=== PATIENT | female | born 1965 | race Caucasian/White ===

== ENCOUNTER 2017-10-21 10:29 | Emergency (ER) | payer MEDICARE ==
[~2017-10-21] VITALS: Ht 165.1 cm; Wt 127.0 kg
[2017-10-21] MEDS ORDERED: HYDROmorphone 2 MG/ML, 1ML ONE (11:05)
[2017-10-21] MEDS ORDERED: HYDROmorphone 1 MG/ML, 1ML IM ONE (11:30)
[2017-10-21 11:37] LABS: BASOPHILS # (AUTO) 0.03 x10^3/uL (0-0.1); BASOPHILS % (AUTO) 0 % (0-1); EOSINOPHILS # (AUTO) 0.18 x10^3/uL (0-0.4); EOSINOPHILS % (AUTO) 2 % (1-7); LYMPHOCYTES # (AUTO) 2.34 x10^3/uL (1-3.4); LYMPHOCYTES % (AUTO) 30 % (22-44); MD NO; MEAN CORPUSCULAR HEMOGLOBIN 31.6 pg (27.0-34.8); MEAN CORPUSCULAR HGB CONC 33.1 g/dL (32.4-35.8); MEAN CORPUSCULAR VOLUME 95.4 fL (80-100); MEAN PLATELET VOLUME 8.2 fL (7.4-10.4); MONOCYTES # (AUTO) 0.69 x10^3/uL (0.2-0.8); MONOCYTES % (AUTO) 9 % (2-9); NEUTROPHILS # (AUTO) 4.52 x10^3/uL (1.8-6.8); NEUTROPHILS % (AUTO) 58 % (42-75); PLATELET COUNT 270 x10^3/uL (130-400); RED BLOOD COUNT 4.45 x10^6/uL (3.82-5.3); RED CELL DISTRIBUTION WIDTH 13.3 % (9.6-15.2)
[2017-10-21 11:38] LABS: ALBUMIN 3.5 g/dL (3.4-5.0); ANION GAP 6 mmol/L (5-15); CALCIUM 9.3 mg/dL (8.5-10.1); CHLORIDE 108 mmol/L (98-107); CREATININE 0.99 mg/dL (0.55-1.02)
[2017-10-21 12:27] VITALS: BP 132/74
== END 2017-10-21 12:29 | disposition home or self-care (01) ==
LOC: ED 12:22
DX: L03.312 Cellulitis of back [any part except buttock and flank] (principal); F17.200 Nicotine dependence, unspecified, uncomplicated
CPT/HCPCS: 36415; 80048; 82040; 85025; 96372; 99284; J1170

== ENCOUNTER 2018-03-30 23:46 | Emergency (ER) | payer MEDICARE ==
[~2018-03-30] VITALS: Ht 162.6 cm; Wt 131.0 kg
[2018-03-31] MEDS ORDERED: PROMETHAZINE 25 MG/ML, 1ML ONE (00:19)
[2018-03-31] MEDS ORDERED: HYDROmorphone 2 MG/ML, 1ML ONE (00:20)
[2018-03-31 00:29] LABS: MICROSCOPIC NOT IND
[2018-03-31] MEDS ORDERED: PROMETHAZINE 25 MG/ML, 1ML IM ONE (00:30)
[2018-03-31] MEDS ORDERED: HYDROmorphone 1 MG/ML, 1ML IM ONE (00:30)
[2018-03-31 00:32] LABS: CULTURE INDICATED? YES
[2018-03-31 00:37] LABS: BASOPHILS # (AUTO) 0.04 x10^3/uL (0-0.1); BASOPHILS % (AUTO) 0 % (0-1); EOSINOPHILS % (AUTO) 0 % (1-7); LYMPHOCYTES # (AUTO) 0.59 x10^3/uL (1-3.4); LYMPHOCYTES % (AUTO) 5 % (22-44); MD NO; MEAN CORPUSCULAR HEMOGLOBIN 32.7 pg (27.0-34.8); MEAN CORPUSCULAR HGB CONC 33.4 g/dL (32.4-35.8); MEAN CORPUSCULAR VOLUME 97.8 fL (80-100); MEAN PLATELET VOLUME 8.1 fL (7.4-10.4); MONOCYTES # (AUTO) 0.13 x10^3/uL (0.2-0.8); MONOCYTES % (AUTO) 1 % (2-9); NEUTROPHILS # (AUTO) 12.32 x10^3/uL (1.8-6.8); NEUTROPHILS % (AUTO) 94 % (42-75); PLATELET COUNT 278 x10^3/uL (130-400); RED BLOOD COUNT 4.45 x10^6/uL (3.82-5.3); RED CELL DISTRIBUTION WIDTH 13.3 % (9.6-15.2)
[2018-03-31 00:43] LABS: ALANINE AMINOTRANSFERASE 53 U/L (12-78); ALBUMIN 3.9 g/dL (3.4-5.0); ANION GAP 8 mmol/L (5-15); CALCIUM 8.9 mg/dL (8.5-10.1); CHLORIDE 106 mmol/L (98-107); CREATININE 0.94 mg/dL (0.55-1.02)
[2018-03-31 00:45] LABS: ALKALINE PHOSPHATASE 76 U/L (45-117); BILIRUBIN,TOTAL 0.4 mg/dL (0.2-1.0); TOTAL PROTEIN 7.7 g/dL (6.4-8.2)
[2018-03-31 01:08] VITALS: BP 151/74
[2018-03-31] MEDS ORDERED: METOCLOPRAMIDE 5 MG/ML, 2ML ONE (01:09)
[2018-03-31] MEDS ORDERED: METOCLOPRAMIDE 5 MG/ML, 2ML IM PRN (01:30)
== END 2018-03-31 02:21 | disposition home or self-care (01) ==
LOC: ED 03-31 00:18
DX: G43.A1 Cyclical vomiting, in migraine, intractable (principal); R10.32 Left lower quadrant pain; M54.5 Low back pain; Z90.49 Acquired absence of other specified parts of digestive tract; Z87.891 Personal history of nicotine dependence
CPT/HCPCS: 36415; 80053; 81003; 85025; 87086; 96372; 99283; J1170; J2550; J2765

== ENCOUNTER 2018-04-02 19:28 | Observation (INO) | payer MEDICARE ==
[~2018-04-02] VITALS: Ht 165.1 cm; Wt 134.5 kg
[2018-04-02 20:17] LABS: CHLORIDE 106 mmol/L (98-107)
[2018-04-02 20:18] LABS: ALBUMIN 3.8 g/dL (3.4-5.0); ANION GAP 9 mmol/L (5-15); CALCIUM 8.8 mg/dL (8.5-10.1); CREATININE 1.09 mg/dL (0.55-1.02)
[2018-04-02 20:40] LABS: MEAN CORPUSCULAR HEMOGLOBIN 33.7 pg (27.0-34.8); MEAN CORPUSCULAR HGB CONC 34.8 g/dL (32.4-35.8); MEAN CORPUSCULAR VOLUME 96.8 fL (80-100); MEAN PLATELET VOLUME 9.9 fL (7.4-10.4); PLATELET COUNT 369 x10^3/uL (130-400); RED BLOOD COUNT 4.36 x10^6/uL (3.82-5.3); RED CELL DISTRIBUTION WIDTH 13.9 % (9.6-15.2)
[2018-04-02 20:45] LABS: BASOPHILS # (AUTO) 0.06 x10^3/uL (0-0.1); BASOPHILS % (AUTO) 1 % (0-1); EOSINOPHILS # (AUTO) 0.33 x10^3/uL (0-0.4); EOSINOPHILS % (AUTO) 4 % (1-7); LYMPHOCYTES # (AUTO) 1.88 x10^3/uL (1-3.4); LYMPHOCYTES % (AUTO) 23 % (22-44); MD SCAN; MONOCYTES # (AUTO) 0.35 x10^3/uL (0.2-0.8); MONOCYTES % (AUTO) 4 % (2-9); NEUTROPHILS % (AUTO) 69 % (42-75)
[2018-04-02] MEDS ORDERED: DIAZEPAM 5 MG/ML, 2ML IM STA (20:54)
[2018-04-02] MEDS ORDERED: SODIUM CHLORIDE FLUSH 10ML SYR IVF ONE (21:00)
[2018-04-02] MEDS ORDERED: ONDANSETRON 2MG/ML, 2ML IVPush ONE (21:00)
[2018-04-02] MEDS ORDERED: ONDANSETRON 2MG/ML, 2ML ONE (21:25)
[2018-04-02] MEDS ORDERED: HYDROmorphone 2 MG/ML, 1ML ONE ×2 (21:26→22:03)
[2018-04-02] MEDS: HYDROmorphone 2 MG/ML, 1ML IVPush PRN ×2 (21:31→22:18)
[2018-04-02] MEDS ORDERED: METHYLNALTREXONE 12 MG/0.6 ML SQ ONE ×2 (22:30→22:39)
[2018-04-03] MEDS ORDERED: QUET200T PO (00:03)
[2018-04-03] MEDS ORDERED: SULF1TAB24 PO (00:03)
[2018-04-03] MEDS ORDERED: BACL20TA PO (00:03)
[2018-04-03] MEDS ORDERED: OXYC5CAP2 PO (00:03)
[2018-04-03] MEDS ORDERED: ONDA4TAB7 PO (00:03)
[2018-04-03] MEDS ORDERED: GABAPENTIN 300 MG CAPSULE PO PRN (00:30)
[2018-04-03] MEDS ORDERED: hydrALAzine 20 MG/ML, 1ML IVPush PRN (00:30)
[2018-04-03] MEDS ORDERED: ACETAMINOPHEN 325 MG TABLET PO PRN (00:30)
[2018-04-03 01:17] VITALS: BP 123/85
[2018-04-03] MEDS: HYDROmorphone 2 MG/ML, 1ML IM PRN ×4 (01:55→19:36)
[2018-04-03] MEDS: ENOXAPARIN 40 MG/0.4 ML SQ SCH (01:55)
[2018-04-03] MEDS: QUETIAPINE 200 MG TABLET PO SCH ×2 (01:55→21:08)
[2018-04-03] MEDS: HYDROcodone/APAP 5/325 TABLET PO PRN ×3 (03:40→16:25)
[2018-04-03] MEDS: LIDODERM 5% PATCH TD PRN (03:41)
[2018-04-03 06:55] VITALS: BP 105/61
[2018-04-03] MEDS: SULFAMETH./TRIMETHOPRIM DS 800MG/160MG TABLET PO SCH ×2 (09:38→21:08)
[2018-04-03] MEDS: BACLOFEN 10 MG TABLET PO SCH ×2 (09:38→21:08)
[2018-04-03] MEDS: SENNA/DOCUSATE TABLET PO SCH (09:38)
[2018-04-03] MEDS: ONDANSETRON ODT 4 MG PO PRN (12:25)
[2018-04-03 13:11] VITALS: BP 116/72
[2018-04-03] MEDS ORDERED: POLYETHYLENE GLYCOL 17 GM PACKET ONE (17:12)
[2018-04-03] MEDS: POLYETHYLENE GLYCOL 17 GM PACKET NG SCH (17:21)
[2018-04-03 19:57] VITALS: BP 107/63
[2018-04-03] MEDS: OXYcodone/APAP 5/325MG TABLET PO PRN (22:59)
[2018-04-04] MEDS: HYDROmorphone 2 MG/ML, 1ML IM PRN ×2 (01:15→05:37)
[2018-04-04 02:01] VITALS: BP 116/76
[2018-04-04] MEDS: ENOXAPARIN 40 MG/0.4 ML SQ SCH (03:00)
[2018-04-04 07:28] VITALS: BP 100/62
[2018-04-04] MEDS: POLYETHYLENE GLYCOL 17 GM PACKET NG SCH (07:51)
[2018-04-04] MEDS: SULFAMETH./TRIMETHOPRIM DS 800MG/160MG TABLET PO SCH ×2 (07:51→20:55)
[2018-04-04] MEDS: OXYcodone/APAP 5/325MG TABLET PO PRN ×4 (07:51→20:55)
[2018-04-04] MEDS: SENNA/DOCUSATE TABLET PO SCH (07:51)
[2018-04-04] MEDS: BACLOFEN 10 MG TABLET PO SCH ×2 (07:51→20:54)
[2018-04-04] MEDS: ONDANSETRON ODT 4 MG PO PRN (07:58)
[2018-04-04] MEDS ORDERED: HYDROmorphone 2 MG/ML, 1ML IM PRN (08:30)
[2018-04-04] MEDS: HEPARIN 5,000 UNITS/ML, 1ML SQ SCH ×3 (09:00→19:27)
[2018-04-04] MEDS: GABAPENTIN 300 MG CAPSULE PO SCH ×2 (09:00→19:26)
[2018-04-04] MEDS: ACETAMINOPHEN 325 MG TABLET PO SCH ×4 (10:10→22:48)
[2018-04-04] MEDS: FAMOTIDINE 20 MG TABLET PO SCH ×2 (12:09→20:54)
[2018-04-04 13:16] VITALS: BP 110/58
[2018-04-04 19:38] VITALS: BP 108/70
[2018-04-04] MEDS: QUETIAPINE 200 MG TABLET PO SCH ×2 (20:54→21:00)
[2018-04-05 01:42] VITALS: BP 143/109
[2018-04-05] MEDS: OXYcodone/APAP 5/325MG TABLET PO PRN ×3 (01:55→10:26)
[2018-04-05] MEDS: LIDODERM 5% PATCH TD PRN (04:33)
[2018-04-05 06:37] VITALS: BP 142/83
[2018-04-05] MEDS: POLYETHYLENE GLYCOL 17 GM PACKET NG SCH (08:45)
[2018-04-05] MEDS: SULFAMETH./TRIMETHOPRIM DS 800MG/160MG TABLET PO SCH (08:45)
[2018-04-05] MEDS: BACLOFEN 10 MG TABLET PO SCH (08:45)
[2018-04-05] MEDS: SENNA/DOCUSATE TABLET PO SCH (08:45)
[2018-04-05] MEDS: FAMOTIDINE 20 MG TABLET PO SCH (08:45)
[2018-04-05] MEDS: GABAPENTIN 300 MG CAPSULE PO SCH (08:46)
[2018-04-05] MEDS: HEPARIN 5,000 UNITS/ML, 1ML SQ SCH (08:47)
[2018-04-05] MEDS ORDERED: LACTOBACILLUS CHEW TABLET PO SCH (09:00)
[2018-04-05] MEDS: ACETAMINOPHEN 325 MG TABLET PO SCH (10:13)
[2018-04-05] MEDS ORDERED: OMEP-110 PO (10:16)
[2018-04-05] MEDS ORDERED: ACET325T14 PO (10:16)
[2018-04-05] MEDS ORDERED: ACID1TAB7 PO (10:16)
[2018-04-05] MEDS: ONDANSETRON ODT 4 MG PO PRN (10:27)
[2018-04-06] MEDS ORDERED: OMEPRAZOLE 20 MG CAPSULE.DR PO SCH (06:00)
== END 2018-04-05 12:00 | disposition home or self-care (01) ==
LOC: ED 20:27 → 3NE 04-03 00:04
PROVIDERS: ADMIT Family Medicine; ATTEND Family Medicine
DX: G89.4 Chronic pain syndrome (principal); M79.7 Fibromyalgia; E66.01 Morbid (severe) obesity due to excess calories; F11.20 Opioid dependence, uncomplicated; K21.9 Gastro-esophageal reflux disease without esophagitis; G47.30 Sleep apnea, unspecified; Z90.710 Acquired absence of both cervix and uterus
CPT/HCPCS: 36415; 74021; 80048; 82040; 85025; 96372; 96374; 96375; 96376; 99284; G0378; J1170; J1650; J2405; J3360; Q0162

== ENCOUNTER 2020-09-26 14:36 | Emergency (ER) | payer MEDICARE ==
[~2020-09-26] VITALS: Ht 167.6 cm; Wt 140.6 kg
[~2020-09-26 14:36] MED LIST: ACET325T14 PO; ACID1TAB7 PO; BACL20TA PO; OMEP-110 PO; ONDA4TAB7 PO; OXYC5CAP2 PO; QUET200T PO; SULF-23 PO
--- NOTE | 2020-09-26 17:00 | NUR ---
Pt with c/o L eye pressure that started 3 days ago. Pt states light makes it much worse. Pt states [place] from the pain being caused by the pressure. KUMAR. Addendum: 09/26/20 at 1854 by MUMTAZ Pt with c/o L eye pressure that started 3 days ago. Pt states light makes it much worse. Pt states [place] from the pain being caused by the pressure. KUMAR. 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
[2020-09-26 18:42] VITALS: BP 143/99
--- NOTE | 2020-09-26 18:42 | NUR ---
Opthomologist at bedside for eval.
--- NOTE | 2020-09-26 18:52 | NUR ---
REPORT RECEIVED FROM SAM DURHAM
--- NOTE | 2020-09-26 19:35 | NUR ---
PT TO CT
[2020-09-26 19:37] LABS: BASOPHILS % (AUTO) 0 % (0-1); EOSINOPHILS % (AUTO) 3 % (1-7); LYMPHOCYTES % (AUTO) 25 % (22-44); MEAN PLATELET VOLUME 7.9 fL (7.4-10.4); MONOCYTES % (AUTO) 8 % (2-9); NEUTROPHILS % (AUTO) 65 % (42-75); PLATELET COUNT 316 x10^3/uL (130-400); RED BLOOD COUNT 4.85 x10^6/uL (3.82-5.3); RED CELL DISTRIBUTION WIDTH 13.9 % (9.6-15.2)
[2020-09-26 19:46] LABS: ALBUMIN 3.9 g/dL (3.4-5.0); ANION GAP 6 mmol/L (5-15); CALCIUM 9.1 mg/dL (8.5-10.1); CHLORIDE 107 mmol/L (98-107); CREATININE 1.06 mg/dL (0.55-1.02)
== END 2020-09-26 21:02 | disposition home or self-care (01) ==
LOC: ED 18:24
DX: H57.12 Ocular pain, left eye (principal); Z90.89 Acquired absence of other organs; F17.200 Nicotine dependence, unspecified, uncomplicated
CPT/HCPCS: 36415; 70450; 80048; 82040; 85025; 99284